=== PATIENT | female | born 1945 | race Hispanic/Latino ===

== ENCOUNTER 2016-04-05 17:52 | Emergency (ER) | payer MEDICARE, MEDICAID ==
[~2016-04-05] VITALS: Ht 152.4 cm; Wt 86.4 kg
[~2016-04-05 17:52] MED LIST: ASPI81TA2 PO; COZ25 PO; HCTZ25 PO; INSU100C6 SUBQ; K20 PO; LEVO125T2 PO; VIT1CAPS45 PO; [UNRECOGNIZED DRUG - CODE] SUBQ; [UNRECOGNIZED DRUG - OTHER] SUBQ
[2016-04-05 18:05] VITALS: BP 183/77; PULSE 78; RESP 16; O2SAT 97
[2016-04-05 18:21] LABS: BASOPHILS % (AUTO) 0.4 % (0-3); EOSINOPHILS % (AUTO) 1.6 % (0-5); Mean Corpuscular Hemoglobin 28.7 pg (27.0-35.0); Mean Corpuscular Volume 90.4 fL (81-100); NEUTROPHILS % (AUTO) 58.4 % (40-74); Platelet Count 237 bil/L (150-400)
[2016-04-05 18:47] LABS: Magnesium 1.9 mg/dL (1.6-2.6)
[2016-04-05 18:50] LABS: TROPONIN T < 0.010 ug/L (0.0-0.011)
[2016-04-05 19:00] VITALS: BP 162/95; PULSE 77; RESP 17; O2SAT 100
--- NOTE | 2016-04-05 19:34 | ED.REPORT ---
HPI-Chest Pain 40 and Over Date of Service Apr 05, 2016 ED Provider: Napoleon Larry MD A 70 year old female with a history of hypertension, hyperlipidemia, diabetes and breast cancer presents to the ED complaining of chest pain that began at 0900 yesterday. The pain has been constant since onset and radiates to her back. Patient is unable to describe the characteristics of her pain. She took aspirin with no relief and the pain is not relived by anything. Associated symptoms include SOB and one episode of dizziness. She denies nausea or vomiting. She was sent from Urgent Care for further evaluation after receiving lab work and an EKG. Patient is still experiencing mild chest pain. Nursing Notes Stated Complaint: DIZZINESS Chief Complaint: Chest Pain Nursing Notes Reviewed: Yes Allergies: Coded Allergies: No Known Allergies (Verified , 05/14/06) Scheduled ([Monoflex]) 14 SUBQ DAILYAC Aspirin-Expunged Drug, Do Not Renew! (Aspirin-Expunged Drug, Do Not Renew!) 81 Mg Tab 81 MG PO DAILY Hydrochlorothiazide-Expunged, Do Not Renew! (Hydrochlorothiazide-Expunged, Do Not Renew!) 25 Mg Tablet 25 MG PO DAILY INSULIN GLARGINE-Expunged Drug, Do Not Renew! (Lantus-Expunged Drug, Do Not Renew!) 100 Unit/1 Ml Cartridge 40 SUBQ Q HS Insulin Aspart-Expunged Drug, Do Not Renew! (Novolog-Expunged Drug, Do Not Renew !) 100 Unit/Ml Unit UNIT SUBQ SLIDING SCALE TID Levothyroxine-Expunged Drug, Do Not Renew! (Synthroid-Expunged Drug, Do Not Renew!) 125 Mcg Tablet 125 MCG PO DAILYAC 0.125 MG = 125 MCG Losartan-Expunged Drug, Do Not Renew! (Losartan-Expunged Drug, Do Not Renew!) 25 Mg Tablet 25 MG PO DAILY Potassium Chl-Expunged Drug, Do Not Renew! (I-KPM-Wbgpxfkh Drug, Do Not Renew!) 20 Meq Tabsr 20 MEQ PO DAILY GIVE WITH FOOD Vit B6/Me-Thfolate/Me-B12/Ala (Podiapn Capsule) 1 Each Capsule 1 EACH PO DAILY General Time Seen by MD: 19:17 Chief Complaint Chest pain Hx Obtained From: Patient Arrived By: Walk-in Sudden in Onset?: No Onset Occurred: Yesterday Symptom Duration: Since onset Location: : Chest left: Chest right Quality: Painful Radiation: : Does not radiate Migration/Movement: Reports: None Severity: Current: Moderate Severity: Maximum: Moderate Associated with: Reports: Dizziness Pertinent Negative: Pt denies other symptoms Recent Healthcare: No recent hospitalization, Recent doctor visit Risk Factors )( CAD Risk Stratification Diabetes mellitus Hypertension Risk factors reviewed )( TAD Risk Stratification Hypertension Risk factors reviewed )( PE Risk Stratification Risk factors reviewed Past Medical History Past Medical History Notes: PCP: Lenore Fiore Past Medical History Reports: Cancer (Breast cancer), Diabetes mellitus, Hyperlipidemia, Hypertension Reports: Thyroid disease (hypothyrodism ) Past Surgical History ERCP with biliary sphincterotomy - Choledocholithiasis Family History Denies history of heart disease Denies: CAD < 40 years old, Coronary artery disease Smoking History Never Smoker Social History Other Social History: Good social support, Local resident Ambulatory Status Independent Review of Systems Constitutional: Denies: Chills, Fever Respiratory: Reports: Shortness of breath Cardiovascular: Reports: Chest pain GI: Reports: Abdominal pain, Denies: Nausea, Vomiting Neurologic: Reports: Dizziness, Denies: Change LOC Complete sys rev & neg: except as marked. Physical Exam Initial Vital Signs Vital Signs (First) Date Time Temp Pulse Resp B/P Pulse Ox O2 Delivery O2 Flow Rate FiO2 04/05/16 18:05 36.2 78 16 183/77 97 Room Air Initial VS: Reviewed Head / Eyes: Atraumatic, Normocephalic, PERRL Extremities: Vascular intact, Neuro intact, No swelling, No tenderness Neurologic: Alert, Oriented, Nonfocal Psychiatric: Mood/affect normal, Behavior normal, Normal thought content General/Constitutional: Awake, Alert Respiratory / Chest: Atraumatic, Breath sounds NL, Breath sounds = bilat Cardiovascular: Heart rate NL, Regular rhythm, Heart sounds NL, No gallop, No murmurs, No rubs Abdomen: Atraumatic, Soft, BS normoactive Skin: Atraumatic, Color NL, Warm, Dry Interpretation & Diagnostics Lab Results Interpretation Result Diagram: 04/05/166 04/05/16 1806 Test 04/05/16 18:06 04/05/16 20:57 White Blood Count 9.3th/mm3 (3.8-10.1) Red Blood Count 4.18mil/mm3 (3.90-5.20) Hemoglobin 12.0g/dL (12.0-15.6) Hematocrit 37.8% (35.0-46.0) Mean Corpuscular Volume 90.4fL (81-100) Mean Corpuscular Hemoglobin 28.7pg (27.0-35.0) Mean Corpuscular Hemoglobin Concent 31.7% (32.0-37.0) Red Cell Distribution Width 13.4% (12.3-15.4) Platelet Count 237bil/L (150-400) Neutrophils (%) (Auto) 58.4% (40-74) Lymphocytes (%) (Auto) 32.3% (14-46) Monocytes (%) (Auto) 7.0% (4-12) Eosinophils (%) (Auto) 1.6% (0-5) Basophils (%) (Auto) 0.4% (0-3) Hold Purple Top Tube Received (Received) Hold Blue Top Tube Received (Received) Sodium Level 137mEq/L (134-144) Potassium Level 4.2mEq/L (3.5-5.2) Chloride Level 101mEq/L (97-108) Carbon Dioxide Level 23mmol/L (18-29) Blood Urea Nitrogen 18mg/dL (8-27) Creatinine 0.76mg/dL (0.57-1.00) Estimat Glomerular Filtration Rate 107mL/min (>59) Glucose Level 187mg/dL (60-99) Calcium Level 8.5mg/dL (8.5-10.1) Magnesium Level 1.9mg/dL (1.6-2.6) Total Bilirubin 0.2mg/dL (0.0-1.2) Aspartate Amino Transf (AST/SGOT) 20U/L (0-50) Alanine Aminotransferase (ALT/SGPT) 16U/L (0-32) Alkaline Phosphatase 107U/L (25-165) Total Protein 7.2g/dL (6.4-8.4) Albumin 3.2g/dL (3.4-5.0) Hold Red Top Tube Received (Received) Hold Partlow Top Tube Received (Received) Troponin T 0.010ug/L (0.0-0.011) ECG Interpretation ECG Interpretation: Urgent Care EKG Normal sinus rhythm Rate 81 Poor R wave progression No ST segment change Time: 19:46 Interpreted by: ED physician ECG Interpretation: Sinus Rhythm Rate 76 Time: 20:06 Interpreted by: ED physician Normal ECG Interpretation: No change from prior ECGs Repeat ECG: Repeat ECG unchanged X-Ray Chest Interpretation Chest Xray Interpretation: IMPRESSION: Prior presumed breast carcinoma surgery at the left breast and axilla area, source of chest pain is not seen, no metastatic disease is identified. Dictated by: Cristo Prasad M.D. on 04/05/2016 at 19:57 Interpretation / Wet Read by: Interpret - Radiologist Re-Eval/Medical Decision Time of Eval: 20:29 Patient Status: Condition improved Re-Evaluation/Progress Note: Patient is rechecked. Her pain is mostly resolved. She is informed of her lab results, EKG results, X-ray results and the intended treatment plan to obtain a repeat troponin. Time of Eval: 22:00 Patient Status: Condition improved Re-Evaluation/Progress Note: Patient is rechecked. Her pain is still present but is improved. She is informed of her repeat trop results and diagnosis. She understands and agrees with the treatment plan to discharge. Counseled Regarding: Diagnosis, Lab results, Need for follow-up, When/why to return to ED Discharge & Departure Primary Impression: Non-cardiac chest pain Disposition: Home Discharge Condition All VS Reviewed: Yes Condition: Stable Patient Instructions: Chest Pain (ED) Additional Instructions: Emergency department evaluation today including review, examination, labs, chest x-ray and ECG. Pain is not related to heart, may safely use acetaminophen (Tylenol) as needed for pain, 2 500 mg up to 3 times a day. Return to emergency department for increasing pain, fevers or shortness of breath. With primary care soon. Referrals: Lenore Fiore (PCP) Scribe Attestation Portions of this note were transcribed by Ilene Peña. I, Dr. Larry personally performed the history, physical exam and medical decision-making; I reviewed and confirmed the accuracy of the information in the transcribed note. Signed by: Ilene Peña, 04/05/16, [id number]. copies to: Lenore Fiore Donald L MD Apr 05, 2016 19:34 ILENE PEÑA Apr 05, 2016 19:47
--- NOTE | 2016-04-05 19:58 | DRSVH ---
PROCEDURE: X-RAY CHEST, TWO VIEWS ([id number]) INDICATIONS: chest pain TECHNIQUE: 2 views of the chest were acquired. COMPARISON: None. FINDINGS: Surgical changes and devices: Extensive surgical clips left axilla and anterolateral chest wall, per haps from prior breast carcinoma surgery. Lungs and pleura: No pleural effusions or pneumothorax. Lungs are clear. Mediastinum: Mediastinal contours are normal. Heart size is normal. Bones and chest wall: No suspicious bony abnormalities. Soft tissues appear unremarkable. IMPRESSION: Prior presumed breast carcinoma surgery at the left breast and axilla area, source of ch est pain is not seen, no metastatic disease is identified. Dictated by: Cristo Prasad M.D. on 04/05/2016 at 19:57 Approved by: Cristo Prasad M.D. on 04/05/2016 at 19:57
[2016-04-05 22:37] VITALS: BP 162/95; PULSE 77; RESP 17; O2SAT 100
[2016-04-05 22:40] VITALS: BP 152/79; PULSE 74; RESP 20; O2SAT 100
== END 2016-04-05 22:20 | disposition home or self-care (01) ==
LOC: SED 17:52
DX: R07.89 Other chest pain (principal); R06.02 Shortness of breath; R42 Dizziness and giddiness; I10 Essential (primary) hypertension; E11.9 Type 2 diabetes mellitus without complications; E78.5 Hyperlipidemia, unspecified; E03.9 Hypothyroidism, unspecified
CPT/HCPCS: 36415; 71020; 80053; 82948; 83735; 84484; 85025; 93005; 99285; A4300; G0463